=== PATIENT | female | born 1995 | race Caucasian/White ===

== ENCOUNTER 2021-09-08 10:30 | Emergency (ER) | payer MEDICAID, OTHER ==
[~2021-09-08] VITALS: Ht 170.2 cm; Wt 90.7 kg
[2021-09-08] MEDS ORDERED: FLUoxetine HCL 20 MG CAP PO ONE (13:45)
[2021-09-08] MEDS ORDERED: TOPI50TA32 PO ×2 (13:51→13:52)
[2021-09-08 14:00] VITALS: BP 122/74
== END 2021-09-08 14:27 | disposition home or self-care (01) ==
LOC: ER 10:30
DX: F32.9 Major depressive disorder, single episode, unspecified (principal); Z76.0 Encounter for issue of repeat prescription

== ENCOUNTER 2023-09-15 13:56 | Emergency (ER) | payer MEDICAID ==
[~2023-09-15] VITALS: Ht 170.2 cm; Wt 93.3 kg
[~2023-09-15 13:56] MED LIST: TOPI50TA32 PO
[2023-09-15 14:59] VITALS: BP 112/61; PULSE 72; RESP 18; TEMP 98.7; O2SAT 97
[2023-09-15] MEDS ORDERED: IBUP-1456 PO (15:27)
[2023-09-15] MEDS: IBUPROFEN 800 MG TAB PO ONE (15:36)
== END 2023-09-15 15:46 | disposition home or self-care (01) ==
LOC: ER 14:06
DX: S92.501A Displaced unspecified fracture of right lesser toe(s), initial encounter for closed fracture (principal); F32.A Depression, unspecified; W22.8XXA Striking against or struck by other objects, initial encounter; Y93.89 Activity, other specified; Y92.89 Other specified places as the place of occurrence of the external cause; Y99.8 Other external cause status
CPT/HCPCS: 73630